=== PATIENT | male | born 1980 | race Hispanic/Latino ===

== ENCOUNTER 2022-08-14 16:22 | Emergency (ER) | payer OTHER ==
[~2022-08-14] VITALS: Ht 160 cm; Wt 79.4 kg
[2022-08-14] MEDS ORDERED: CEPHALEXIN500 MG PO (17:39)
[2022-08-14 18:55] VITALS: BP 139/97
== END 2022-08-14 18:55 | disposition home or self-care (01) | DRG 605 ==
LOC: ED 16:22
PROC: 0HQLXZZ Repair Left Lower Leg Skin, External Approach (ICD-10-PCS; principal; 2022-08-14)
DX: S81.812A Laceration without foreign body, left lower leg, initial encounter (principal); X58.XXXA Exposure to other specified factors, initial encounter

== ENCOUNTER 2022-08-22 09:16 | Emergency (ER) | payer OTHER ==
[~2022-08-22] VITALS: Ht 160 cm; Wt 86.2 kg
[~2022-08-22 09:16] MED LIST: CEPHALEXIN500 MG PO
[2022-08-22 10:20] VITALS: BP 111/77
== END 2022-08-22 10:20 | disposition home or self-care (01) | DRG 951 ==
LOC: ED 09:16
DX: Z48.02 Encounter for removal of sutures (principal)